=== PATIENT | female | born 1990 | race Caucasian/White ===

== ENCOUNTER 2017-07-14 04:20 | Emergency (ER) | payer BC ==
[2017-07-14] MEDS ORDERED: Ondansetron 4 MG Tab.DIS PO ONE (04:52)
--- NOTE | 2017-07-14 04:56 | EDM.PDOC ---
ED HPI GENERAL MEDICAL PROBLEM - General Chief Complaint: ENT Problem Stated Complaint: BLOOD FROM NOSE/VOMITING Time Seen by Provider: 07/14/17 04:39 Source of Information: Reports: Patient History Limitations: Reports: No Limitations - History of Present Illness INITIAL COMMENTS - FREE TEXT/NARRATIVE: 27 y/o F presents with epistaxis and vomiting. States that she drank several beers this evening then laid down on the couch. Woke up to copious bleeding from her R nare. No known provoking factor. No known trauma. No recent illness. She states bleeding was initially quite brisk. She tried to hold pressure but then became nauseated and had several episodes of vomiting. Came to ED for further eval. Bleeding stopped before arrival. No longer nauseated. No abd pain at this time. She has been getting occasional LUQ pain under her ribcage. No provoking factor, not related to eating. She does not have this pain now. ALso occasionally gets back pain, which she does not have at this time. States she drinks ETOH daily, had 5 beers last evening. - Related Data Allergies Allergy/AdvReac Type Severity Reaction Status Date / Time moxifloxacin [From Vigamox] Allergy Hives Verified 07/14/17 04:35 Home Meds: Home Meds Psyllium Husk/Aspartame [Metamucil Fiber Singles Packet] 1 pack PO DAILY [History] Past Medical History Gastrointestinal History: Reports: GERD Neurological History: Reports: Migraines Psychiatric History: Reports: Anxiety Dermatologic History: Reports: Other (See Below) Other Dermatologic History: lump in armpit - Past Surgical History HEENT Surgical History: Reports: LASIK GI Surgical History: Reports: EGD Social & Family History - Caffeine Use Caffeine Use: Reports: None - Recreational Drug Use Recreational Drug Use: No ED ROS ENT - Review of Systems Review Of Systems: Unable To Obtain Constitutional: Denies: Fever HEENT: Reports: Nosebleed Respiratory: Denies: Cough Cardiovascular: Denies: Chest Pain Endocrine: Reports: No Symptoms GI/Abdominal: Reports: Vomiting : Reports: No Symptoms Musculoskeletal: Reports: No Symptoms Skin: Reports: No Symptoms Neurological: Reports: No Symptoms Psychiatric: Reports: No Symptoms Hematologic/Lymphatic: Denies: Easy Bleeding ED EXAM, ENT - Physical Exam Exam: See Below Exam Limited By: No Limitations General Appearance: Alert, WD/WN, No Apparent Distress, Other (smells strongly of ETOH ) Eye Exam: Bilateral Eye: Normal Inspection Ears: Normal External Exam Nose: Normal Inspection, Normal Mucousa, Dried Blood (on L septum suggestive of recent bleeding. No active bleeding. ). No: Injected Turbinates Mouth/Throat: Normal Inspection, Normal Oropharynx. No: Bleeding Head: Atraumatic, Normocephalic Neck: Normal Inspection, Supple Respiratory/Chest: No Respiratory Distress, Lungs Clear, Normal Breath Sounds Cardiovascular: Normal Peripheral Pulses, Regular Rate, Rhythm, No Murmur GI/Abdominal: Soft, Non-Tender, No Distention. No: Rebound Back: Normal Inspection. No: CVA Tenderness (L), CVA Tenderness (R) Extremities: Normal Inspection Neurological: Alert, Oriented, Normal Cognition, No Motor/Sensory Deficits Psychiatric: Normal Affect, Normal Mood Skin: Warm, Dry, Intact, Normal Color, No Rash Course - Vital Signs Last Recorded V/S: Last Vital Signs Temp 37.1 C 07/14/17 04:30 Pulse 110 H 07/14/17 04:30 Resp 18 07/14/17 04:30 BP 148/92 H 07/14/17 04:30 Pulse Ox 100 07/14/17 04:30 - Orders/Labs/Meds Meds: Medications Discontinued Medications Generic Name Dose Route Start Last Admin Trade Name Shalonda PRN Reason Stop Dose Admin Ondansetron HCl 8 mg 07/14/17 04:52 07/14/17 05:00 Zofran Odt PO 07/14/17 04:53 8 mg ONETIME ONE Administration - Re-Assessments/Exams Free Text/Narrative Re-Assessment/Exam: 07/14/17 06:51 No active epistaxis here. She was more concerned about the vomiting, which has ceased. It may have been due to the swallowed blood. No further nausea. No abd pain or TTP now. I suggested she f/u with PCP for her intermittent LUQ pain. Departure - Departure Time of Disposition: 04:52 Disposition: Home, Self-Care 01 Clinical Impression: Epistaxis Vomiting Qualifiers: Vomiting type: unspecified Vomiting Intractability: non-intractable Nausea presence: with nausea Qualified Code(s): R11.2 - Nausea with vomiting, unspecified - Discharge Information Instructions: Vomiting, Adult, Nosebleed, Adult Referrals: Zhen Seymour MD [Primary Care Provider] - Forms: ED Department Discharge Additional Instructions: 1. Drink plenty of fluids 2. Use vaseline as needed on the inner nose surface to prevent further bleeds. 3. Follow up with Dr. Bocanegra as needed for your other concerns. Return to the Emergency Department for any further emergency problems, such as severe pain , difficulty breathing, many episodes of vomiting without keeping liquids down or other severe symptoms.
== END 2017-07-14 05:05 | disposition home or self-care (01) ==
LOC: JD.ED 04:20
DX: R04.0 Epistaxis (principal); R11.2 Nausea with vomiting, unspecified; K21.9 Gastro-esophageal reflux disease without esophagitis; Z79.899 Other long term (current) drug therapy; Z88.1 Allergy status to other antibiotic agents
CPT/HCPCS: 99283; A9270

== ENCOUNTER 2018-12-23 19:26 | Emergency (ER) | payer SELFPAY ==
--- NOTE | 2018-12-23 19:46 | EDM.PDOC ---
ED HPI GENERAL MEDICAL PROBLEM - General Chief Complaint: Bite:Animal, Insect Stated Complaint: DOG BITE Time Seen by Provider: 12/23/18 19:46 Right Arm Pain Score (Numeric/FACES): 4 - Related Data Allergies Allergy/AdvReac Type Severity Reaction Status Date / Time moxifloxacin [From Vigamox] Allergy Hives Verified 12/23/18 19:43 Home Meds: Home Meds Psyllium Husk/Aspartame [Metamucil Fiber Singles Packet] 1 pack PO DAILY [History] Acetaminophen/HYDROcodone [[place] 325-5 MG] 1 tab PO Q4H PRN #10 tablet 12/23/18 [Rx] Omeprazole 20 mg PO DAILY 12/23/18 [History] Sucralfate 1 gm PO DAILY 12/23/18 [History] Past Medical History Gastrointestinal History: Reports: GERD Neurological History: Reports: Migraines Psychiatric History: Reports: Anxiety Dermatologic History: Reports: Other (See Below) Other Dermatologic History: lump in armpit - Past Surgical History HEENT Surgical History: Reports: LASIK GI Surgical History: Reports: EGD Social & Family History - Caffeine Use Caffeine Use: Reports: None ED ROS GENERAL - Review of Systems Review Of Systems: See Below Constitutional: Reports: No Symptoms Respiratory: Reports: No Symptoms Cardiovascular: Reports: No Symptoms GI/Abdominal: Reports: No Symptoms ED EXAM, ANIMAL BITE - Physical Exam Exam: See Below Exam Limited By: No Limitations General Appearance: Alert, No Apparent Distress Respiratory/Chest: No Respiratory Distress, Lungs Clear, Normal Breath Sounds Cardiovascular: Normal Peripheral Pulses, Regular Rate, Rhythm, No Edema Extremities: Other (Average right forearm shows a large horizontal chevron- shaped laceration on the flexor surface of her forearm. She has a couple puncture wounds on her fingers she has good range of motion of her fingers or vascular status is intact.) ED ANIMAL BITE PROCEDURES - Laceration/Wound Repair Right Arm Lac/Wound Length In cm: 10.5 Appearance: Subcutaneous Distal NVT: Neuro & Vascular Intact Anesthetic Type: Local Local Anesthesia - Lidocaine (Xylocaine): 1% Plain Local Anesthetic Volume: Other (16 mL 1% lidocaine without epinephrine) Skin Prep: Chlorhexidine (Hibiciens), Saline Exploration/Debridement/Repair: Wound Explored, In a Bloodless Field, Explored to Base, Minimal Debridement Suture Size: 3-0 # of Sutures: 13 Suture Type: Nylon Tetanus Status Addressed: Other (This is up to date) Complications: No Progress/Comments: Patient has a large chevron-shaped laceration voiding radial aspect of the arm on the flexor surface. The medial pointed flap was brought together using a horizontal mattress stitch just to approximated the wings were then sutured together yielding pretty good wound approximation being careful to keep the skin loosely approximated with a mattress stitch was then removed to simple sutures were used to place the apex in good position. Course - Vital Signs Last Recorded V/S: Last Vital Signs Temp 36.7 C 12/23/18 19:39 Pulse 90 12/23/18 19:39 Resp 18 12/23/18 19:39 BP 157/106 H 12/23/18 19:39 Pulse Ox 97 12/23/18 19:39 - Orders/Labs/Meds Meds: Medications Discontinued Medications Generic Name Dose Route Start Last Admin Trade Name Freq PRN Reason Stop Dose Admin Amoxicillin/Clavulanate Potassium 1 tab 12/23/18 19:53 12/23/18 20:12 Augmentin 875 Mg/125 Mg PO 12/23/18 19:54 1 tab ONETIME ONE Administration Lidocaine HCl 10 ml 12/23/18 19:56 12/23/18 20:12 Xylocaine 1% INJECT 12/23/18 19:57 10 ml ONETIME ONE Administration Lidocaine HCl 10 ml 12/23/18 20:07 12/23/18 20:12 Xylocaine 1% INJECT 12/23/18 20:08 10 ml ONETIME ONE Administration - Re-Assessments/Exams Free Text/Narrative Re-Assessment/Exam: 12/23/18 21:19 Patient was started on Augmentin confirmed her tetanus status was up-to-date and primary repair of this was done explained to the patient no uncertain terms that were loosely approximate this because it is higher risk for infection. The patient will take Augmentin for 10 days Departure - Departure Time of Disposition: 21:20 Disposition: Home, Self-Care 01 Clinical Impression: Open wound of right forearm due to dog bite, Laceration of right forearm - Discharge Information Prescriptions: Acetaminophen/HYDROcodone [[place] 325-5 MG] 1 tab PO Q4H PRN #10 tablet PRN Reason: Pain Referrals: Lion,Zhen M, MD [Primary Care Provider] - Forms: ED Department Discharge Additional Instructions: Return to the emergency room with any questions problems or worsening symptoms. Sutures out in 10-12 days. Use ibuprofen or Tylenol as needed for discomfort if that doesn't work use the hydrocodone Take the Augmentin every 12 hours until all gone. Keep the wound clean and dry for the next 24 hours after this she can let water gently roll over the area for only a few seconds no scrubbing and then gently dab dry
[2018-12-23] MEDS ORDERED: Amoxicillin/Clavulanate K 875-125 MG Tab PO ONE (19:53)
[2018-12-23] MEDS ORDERED: Lidocaine 1% 10 ML MDV INJECT ONE ×2 (19:56→20:07)
== END 2018-12-23 21:43 | disposition home or self-care (01) ==
LOC: JD.ED 19:26
DX: S51.851A Open bite of right forearm, initial encounter (principal); K21.9 Gastro-esophageal reflux disease without esophagitis; Z88.1 Allergy status to other antibiotic agents; Z79.899 Other long term (current) drug therapy; W54.0XXA Bitten by dog, initial encounter
CPT/HCPCS: 12004; 99283; A9270; J2001

== ENCOUNTER 2019-01-05 16:38 | Emergency (ER) | payer SELFPAY | END 2019-01-05 17:25 | disposition home or self-care (01) | LOC: JD.ED 16:38 | DX: Z48.02 Encounter for removal of sutures (principal) | CPT/HCPCS: 99281 ==

== ENCOUNTER 2019-06-10 22:44 | Emergency (ER) | payer SELFPAY ==
--- NOTE | 2019-06-10 23:42 | EDM.PDOC ---
ED HPI GENERAL MEDICAL PROBLEM - General Chief Complaint: Abdominal Pain Stated Complaint: RIGHT SIDE PAIN Time Seen by Provider: 06/10/19 23:14 Source of Information: Reports: Patient History Limitations: Reports: No Limitations - History of Present Illness INITIAL COMMENTS - FREE TEXT/NARRATIVE: Is a 29-year-old female. The afternoon she was having some right lower quadrant sharp intermittent pain. Around 2 hours ago it seemed to get worse. She comes to the ER for evaluation. She says occasionally the sharp pain will radiate into her lower back area as well. She denies any urinary symptoms she denies being . She did get some nausea with a sharp pain but no vomiting and she has no diarrhea. She has no history of kidney stones. She still has her appendix and there might be a vague history of having ovarian cysts. Denies any fever or chills. She any cough or shortness of breath. Has had a LEEP procedure in the past but never followed up after it was done. 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 (HPV) - Past Surgical History HEENT Surgical History: Reports: LASIK, Oral Surgery Other HEENT Surgeries/Procedures: tooth extraction GI Surgical History: Reports: EGD Female Surgical History: Reports: LEEP Social & Family History - Tobacco Use Smoking Status *Q: Never Smoker - Caffeine Use Caffeine Use: Reports: None Other Caffeine Use: rarely - Alcohol Use Days Per Week of Alcohol Use: 7 Number of Drinks Per Day: 6 Total Drinks Per Week: 42 - Recreational Drug Use Recreational Drug Use: No ED ROS GENERAL - Review of Systems Review Of Systems: See Below Constitutional: Denies: Fever, Chills HEENT: Reports: No Symptoms Respiratory: Denies: Shortness of Breath, Cough Cardiovascular: Reports: No Symptoms Endocrine: Reports: No Symptoms GI/Abdominal: Reports: Abdominal Pain, Nausea. Denies: Constipation, Diarrhea, Vomiting : Reports: No Symptoms Musculoskeletal: Reports: Back Pain Skin: Reports: No Symptoms Neurological: Reports: No Symptoms Psychiatric: Reports: No Symptoms Hematologic/Lymphatic: Reports: No Symptoms ED EXAM, GI/ABD - Physical Exam Exam: See Below Exam Limited By: No Limitations General Appearance: Alert, WD/WN, No Apparent Distress Eyes: Bilateral: Normal Appearance Ears: Normal External Exam Nose: Normal Inspection Throat/Mouth: Normal Voice, No Airway Compromise Head: Normocephalic Neck: Supple Respiratory/Chest: No Respiratory Distress, Lungs Clear, Normal Breath Sounds Cardiovascular: Regular Rate, Rhythm, No Murmur GI/Abdominal Exam: Soft, Other (Tender deep in the right lower quadrant area on palpation but there is no masses, there is no peritoneal irritation or rebound noted. She has negative CVAT on the right side.) Back Exam: Normal Inspection, Full Range of Motion. No: CVA Tenderness (R) Extremities: Normal Inspection, Normal Range of Motion Neurological: Alert, Oriented Psychiatric: Normal Affect, Normal Mood Skin Exam: Warm, Dry Course - Vital Signs Last Recorded V/S: Last Vital Signs Temp 97.2 F 06/10/19 22:58 Pulse 92 06/10/19 22:58 Resp 19 06/10/19 22:58 BP 144/94 H 06/10/19 22:58 Pulse Ox 100 06/10/19 22:58 - Orders/Labs/Meds Orders: Active Orders 24 hr Category Date Time Status Transvaginal Non OB [US] Stat Exams 06/11/19 00:25 Taken Labs: Laboratory Tests 06/10/19 06/10/19 06/10/19 Range/Units 23:34 23:34 23:50 WBC 6.28 (3.98-10.04) K/mm3 RBC 4.07 (3.98-5.22) M/mm3 Hgb 13.0 (11.2-15.7) gm/dl Hct 38.9 (34.1-44.9) % MCV 95.6 H (79.4-94.8) fl MCH 31.9 (25.6-32.2) pg MCHC 33.4 (32.2-35.5) g/dl RDW Std Deviation 44.0 (36.4-46.3) fL Plt Count 236 (182-369) K/mm3 MPV 9.7 (9.4-12.3) fl Neut % (Auto) 47.4 (34.0-71.1) % Lymph % (Auto) 39.3 (19.3-51.7) % [place]ett % (Auto) 10.0 (4.7-12.5) % Eos % (Auto) 1.3 (0.7-5.8) Baso % (Auto) 1.8 H (0.1-1.2) % Neut # (Auto) 2.98 (1.56-6.13) K/mm3 Lymph # (Auto) 2.47 (1.18-3.74) K/mm3 Burnett # (Auto) 0.63 H (0.24-0.36) K/mm3 Eos # (Auto) 0.08 (0.04-0.36) K/mm3 Baso # (Auto) 0.11 H (0.01-0.08) K/mm3 HCG, Qual Negative (NEGATIVE) Urine Color Yellow (Yellow) Urine Appearance Clear (Clear) Urine pH 6.5 (5.0-8.0) Ur Specific [place] 1.015 (1.005-1.030) Urine Protein Negative (Negative) Urine Glucose (UA) Negative (Negative) Urine Ketones Negative (Negative) Urine Occult Blood Negative (Negative) Urine Nitrite Negative (Negative) Urine Bilirubin Negative (Negative) Urine Urobilinogen 0.2 (0.2-1.0) Ur Leukocyte Esterase Negative (Negative) Urine RBC 0-5 (0-5) /hpf Urine WBC Not seen (0-5) /hpf Ur Squamous Epith Cells 0-5 (0-5) /hpf Urine Bacteria Not seen (FEW) /hpf Urine Mucus Not seen (FEW) /hpf - Radiology Interpretation Free Text/Narrative:: Ultrasound did not show any evidence of ovarian torsion. She has a complex cyst on the left ovary most likely a hemorrhagic cyst. They did not see any other acute abnormality. - Re-Assessments/Exams Free Text/Narrative Re-Assessment/Exam: 06/11/19 01:51 Poke to the patient regarding the ultrasound results. The right lower quadrant pain is feeling better. She wants to go home. Was noted to have a hemorrhagic cyst on the left ovary and the right ovary appeared to be normal. Departure - Departure Time of Disposition: 01:52 Disposition: Home, Self-Care 01 Condition: Good Clinical Impression: Right lower quadrant pain Ovarian cyst Qualifiers: Laterality: left Qualified Code(s): N83.202 - Unspecified ovarian cyst, left side - Discharge Information Instructions: Abdominal Pain, Adult, [id number] Referrals: Zhen Seymour MD [Primary Care Provider] - Forms: ED Department Discharge Additional Instructions: Gentle activity over the next 24 hours, rest and sleep over the weekend is much as possible, if this pain for some reason gets worse than you may need to return to the ER for reevaluation, follow-up with your doctor later this week if needed. Sepsis Event Note - Evaluation Sepsis Screening Result: No Definite Risk - Focused Exam Vital Signs: Vital Signs Temp Pulse Resp BP Pulse Ox 06/10/19 22:58 97.2 F 92 19 144/94 H 100 Date Exam was Performed: 06/11/19 Time Exam was Performed: 01:51 - My Orders Last 24 Hours: My Active Orders 06/11/19 00:25 Transvaginal Non OB [US] Stat - Assessment/Plan Last 24 Hours: My Active Orders 06/11/19 00:25 Transvaginal Non OB [US] Stat
--- NOTE | 2019-06-12 10:49 | US ---
Pelvic ultrasound: Multiple real-time images were obtained transvaginally. Comparison: No prior pelvic imaging is available. Findings: Uterus is anteverted. No myometrial abnormality is seen. Endometrial thickness is normal at 4.5 mm. Small nabothian cyst is noted. Follicles are seen within the ovaries. Small complicated cyst noted within the left ovary measuring 2.6 cm believed to be physiologic. No free fluid is seen. Measurements: Uterus: Length 6.5 cm, AP height 2.8 cm, transverse width 3.5 cm Right ovary: 3.2 x 1.7 x 2.3 cm Left ovary: 4.2 x 3.1 x 3.5 cm Impression: 1. Small nabothian cyst. 2. Small complicated cyst within the right ovary believed to be physiologic. Diagnostic code #2 I agree with preliminary report issued by [facility] ([facility] preliminary report dictated on 06/11/19 Central Daylight Time) Study was dictated in MDT
== END 2019-06-11 02:09 | disposition home or self-care (01) ==
LOC: JD.ED 22:44
DX: N83.202 Unspecified ovarian cyst, left side (principal); N83.201 Unspecified ovarian cyst, right side; Z88.8 Allergy status to other drugs, medicaments and biological substances
CPT/HCPCS: 36415; 76830; 76830-26; 81001; 84703; 85025; 99283; 99284-25

== ENCOUNTER 2021-05-29 07:44 | Emergency (ER) | payer OTHER ==
[2021-05-29] MEDS ORDERED: Lidocaine 1% with EPINEPHrine 1:100,000 10 ML MDV INJECT ONE (08:22)
[2021-05-29] MEDS ORDERED: Bupivacaine 0.5% 10 ML SDV INJECT ONE (08:22)
== END 2021-05-29 09:35 | disposition home or self-care (01) ==
LOC: JD.ED 07:44
DX: S02.5XXA Fracture of tooth (traumatic), initial encounter for closed fracture (principal); S01.511A Laceration without foreign body of lip, initial encounter; F10.129 Alcohol abuse with intoxication, unspecified; Z72.0 Tobacco use; Z88.1 Allergy status to other antibiotic agents; W18.09XA Striking against other object with subsequent fall, initial encounter
CPT/HCPCS: 12013; 99283; J3490; 99284

== ENCOUNTER 2021-06-04 12:47 | Emergency (ER) | payer OTHER ==
[2021-06-04] MEDS ORDERED: cefTRIAXone 1 GM, Lidocaine 1% 2.1 ML IM ONE ×2 (13:19)
== END 2021-06-04 13:38 | disposition home or self-care (01) ==
LOC: JD.ED 12:47
DX: T81.49XA Infection following a procedure, other surgical site, initial encounter (principal); K21.9 Gastro-esophageal reflux disease without esophagitis; Z72.0 Tobacco use; Z88.8 Allergy status to other drugs, medicaments and biological substances
CPT/HCPCS: 96372; 99282; J0696

== ENCOUNTER 2021-08-27 18:57 | Emergency (ER) | payer OTHER ==
[2021-08-27] MEDS ORDERED: Acetaminophen 325 MG Tab PO ONE (20:10)
== END 2021-08-27 22:45 | disposition home or self-care (01) ==
LOC: JD.ED 18:57
DX: S01.01XA Laceration without foreign body of scalp, initial encounter (principal); R56.9 Unspecified convulsions; F17.210 Nicotine dependence, cigarettes, uncomplicated; Z28.310 Unvaccinated for COVID-19; W18.09XA Striking against other object with subsequent fall, initial encounter
CPT/HCPCS: 12001; 36415; 70450; 80053; 80306; 80307; 81025; 83735; 84100; 85025; 99285; A9270; 99284

== ENCOUNTER 2021-08-28 01:48 | Inpatient (IN) | payer OTHER ==
[2021-08-28] MEDS ORDERED: LORazepam 1 MG Tab PO ONE (02:13)
[2021-08-28] MEDS ORDERED: Sodium Chloride 0.9% 10 ML Syringe FLUSH PRN (04:57)
[2021-08-28] MEDS ORDERED: Magnesium Sulfate (4.06 MEQ/ML) 5 GM/10 ML SDV IV STA (07:50)
[2021-08-28] MEDS ORDERED: Sodium Chloride 0.45% with KCl 1,000 ML IV SCH (08:00)
[2021-08-28] MEDS ORDERED: Magnesium Sulfate/Water 2 GM in Premix Bag 1 BAG IV ONE (08:15)
[2021-08-28] MEDS ORDERED: Ondansetron 4 MG/2 ML SDV IV PRN (08:40)
[2021-08-28] MEDS ORDERED: LORazepam 2 MG/ML SDV IVPUSH PRN (08:40)
[2021-08-28] MEDS: LORazepam 2 MG/ML SDV IVPUSH PRN ×2 (09:16→12:58)
[2021-08-28] MEDS: Famotidine 20 MG Tab PO SCH ×2 (09:19→22:00)
[2021-08-28] MEDS: Thiamine 100 MG Tab PO SCH (09:19)
[2021-08-28] MEDS: Folic Acid 1 MG Tab PO SCH (09:19)
[2021-08-28] MEDS: Potassium Chloride 10 MEQ in Premix Bag 1 BAG IV SCH ×4 (09:20→14:52)
[2021-08-28] MEDS: Nicotine 14 MG/24 Hr Patch TRDERM SCH ×2 (09:28→23:53)
[2021-08-28] MEDS ORDERED: Gadobenate Dimeglumine 529 MG/ML 15 ML SDV IVPUSH ONE (11:08)
[2021-08-28] MEDS ORDERED: Sodium Chloride 0.9% 10 ML Syringe FLUSH ONE (11:30)
[2021-08-28] MEDS: Acetaminophen 325 MG Tab PO PRN ×2 (12:24→22:11)
[2021-08-28] MEDS: Benzocaine 20% Topical Spray UD MUCMEM PRN ×3 (12:55→22:12)
[2021-08-28] MEDS ORDERED: Potassium Chloride 20 MEQ Tab.ER PO ONE (13:15)
[2021-08-28] MEDS: Topiramate 25 MG Tab PO SCH ×2 (14:11→22:00)
[2021-08-29] MEDS: Nicotine 14 MG/24 Hr Patch TRDERM SCH (09:01)
[2021-08-29] MEDS: Famotidine 20 MG Tab PO SCH ×2 (09:02→20:06)
[2021-08-29] MEDS: Topiramate 25 MG Tab PO SCH ×3 (09:03→20:06)
[2021-08-29] MEDS: Folic Acid 1 MG Tab PO SCH (09:03)
[2021-08-29] MEDS: Acetaminophen 325 MG Tab PO PRN ×3 (09:04→21:23)
[2021-08-29] MEDS: Thiamine 100 MG Tab PO SCH (09:04)
[2021-08-29] MEDS: Diphenhydramine/Lidocaine/MagAl/Simethicone 119 ML Bottle PO PRN (18:12)
[2021-08-29] MEDS ORDERED: Triamcinolone Acetonide 0.1% Dental Paste 5 GM Tube DENT SCH (21:00)
[2021-08-30] MEDS: Nicotine 14 MG/24 Hr Patch TRDERM SCH (08:27)
[2021-08-30] MEDS: Diphenhydramine/Lidocaine/MagAl/Simethicone 119 ML Bottle PO PRN (08:27)
[2021-08-30] MEDS: Thiamine 100 MG Tab PO SCH (09:11)
[2021-08-30] MEDS: Folic Acid 1 MG Tab PO SCH (09:12)
[2021-08-30] MEDS: Topiramate 25 MG Tab PO SCH (09:12)
[2021-08-30] MEDS: Famotidine 20 MG Tab PO SCH (09:12)
[2021-08-30] MEDS: Acetaminophen 325 MG Tab PO PRN (09:35)
== END 2021-08-30 11:25 | disposition home or self-care (01) | DRG 897 ==
LOC: JD.ED 01:48 → JD.MS 02:52 → JD.ICU 03:22
PROVIDERS: ADMIT Internal Medicine Cardiovascular Disease; ATTEND Internal Medicine Cardiovascular Disease
DX: F10.239 Alcohol dependence with withdrawal, unspecified (principal); F10.229 Alcohol dependence with intoxication, unspecified; F41.9 Anxiety disorder, unspecified; F32.A Depression, unspecified; R56.9 Unspecified convulsions; K14.6 Glossodynia; F17.210 Nicotine dependence, cigarettes, uncomplicated; K21.9 Gastro-esophageal reflux disease without esophagitis; S01.01XS Laceration without foreign body of scalp, sequela
CPT/HCPCS: 36415; 70553; 70553-26; 80048; 80053; 80306; 81025; 83735; 85025; 95816; 95824; 99222; 99233; 99239; 99283; 99285-25; A9270-GY; A9577; J2060; J3475; J3480; J3490

== ENCOUNTER 2021-10-19 06:13 | Emergency (ER) | payer BC ==
[2021-10-19] MEDS ORDERED: Metoclopramide 10 MG/2 ML SDV IVPUSH ONE (07:00)
[2021-10-19] MEDS ORDERED: Dextrose 5%-Lactated Ringers 1,000 ML IV SCH (07:00)
[2021-10-19] MEDS ORDERED: HYDROmorphone 0.5 MG/0.5 ML Syringe IVPUSH ONE (07:01)
[2021-10-19 07:46] LABS: ESTIMATED GFR 122 mL/min (>60)
== END 2021-10-19 11:55 | disposition home or self-care (01) ==
LOC: EDBD 06:13 → JD.ED 06:13 → MERGE 06:13 → JD.ED 11:55
DX: K52.9 Noninfective gastroenteritis and colitis, unspecified (principal); Z88.1 Allergy status to other antibiotic agents
CPT/HCPCS: 36415; 80053; 83735; 85025; 86140; 96361; 96374; 96375; 99284; J1170; J2765; J7121

== ENCOUNTER 2022-08-29 14:34 | Inpatient (IN) | payer MEDICAID ==
[2022-08-29] MEDS ORDERED: Sodium Chloride 0.9% 10 ML Syringe FLUSH PRN (19:46)
[2022-08-29] MEDS ORDERED: Misoprostol 100 MCG Tab VAG ONE (19:46)
[2022-08-29] MEDS ORDERED: Nalbuphine 10 MG/0.5 ML Syringe IVPUSH PRN (19:49)
[2022-08-29] MEDS ORDERED: Oxytocin/Lactated Ringers 10 UNIT/1,000 ML BAG IV SCH (20:00)
[2022-08-29 20:07] LABS: HEMATOCRIT 35.9 % (34.1-44.9); MEAN CORPUSCULAR HEMOGLOBIN 30.8 pg (25.6-32.2); MEAN CORPUSCULAR HGB CONC 33.4 g/dl (32.2-35.5); MEAN CORPUSCULAR VOLUME 92.1 fl (79.4-94.8); MEAN PLATELET VOLUME 10.8 fl (9.4-12.3); PLATELET COUNT,PLT 291 K/mm3 (182-369); WHITE BLOOD CELL COUNT,WBC 13.37 K/mm3 (3.98-10.04)
[2022-08-30] MEDS: Misoprostol 25 MCG (1/4 of 100 MCG) Tab VAG SCH ×3 (00:38→09:09)
[2022-08-30] MEDS: Sodium Chloride 0.9% 10 ML Syringe FLUSH SCH ×2 (03:19→09:09)
[2022-08-30] MEDS: Lactated Ringers 1,000 ML IV SCH ×2 (09:24→10:55)
[2022-08-30] MEDS ORDERED: diphenhydrAMINE 50 MG/ML SDV IVPUSH PRN (10:43)
[2022-08-30] MEDS ORDERED: Bupivacaine/fentaNYL/NS 100 ML Bag EPIDUR PRN (10:43)
[2022-08-30] MEDS ORDERED: fentaNYL 100 MCG/2 ML SDV EPIDUR PRN (10:43)
[2022-08-30] MEDS ORDERED: ePHEDrine 50 MG/ML SDV IVPUSH PRN (10:43)
[2022-08-30] MEDS ORDERED: Bupivacaine 0.25% 10 ML SDV ONE (13:00)
[2022-08-30] MEDS ORDERED: Lidocaine 1% 10 ML MDV ONE (13:00)
[2022-08-30] MEDS ORDERED: ceFAZolin 2 GM in Sodium Chloride 0.9% 50 ML IV ONE (14:51)
[2022-08-30] MEDS ORDERED: Benzocaine/Menthol 20%-0.5% Spray 78 GM Cannister TOP PRN (17:05)
[2022-08-30] MEDS ORDERED: Witch Hazel Medicated Pads 40/Jar TOP PRN (17:05)
[2022-08-30] MEDS ORDERED: Docusate Sodium 100 MG Cap PO PRN (17:05)
[2022-08-30] MEDS: Ibuprofen 600 MG Tab PO PRN (17:45)
[2022-08-31] MEDS: Ibuprofen 600 MG Tab PO PRN ×3 (00:30→16:30)
[2022-08-31] MEDS: Acetaminophen 325 MG Tab PO PRN (12:07)
[2022-09-01] MEDS: Ibuprofen 600 MG Tab PO PRN ×2 (00:17→08:01)
[2022-09-01] MEDS: Acetaminophen 325 MG Tab PO PRN ×2 (00:18→08:00)
[2022-09-01] MEDS ORDERED: Measles, Mumps & Rubella Vaccine 0.5 ML SDV SUBCUT ONE (10:30)
== END 2022-09-01 11:28 | disposition home or self-care (01) | DRG 807 ==
LOC: JD.OB 14:34 → OBSVTOIN 08-30 14:34 → JD.OB 08-30 14:35
PROVIDERS: ADMIT Obstetrics & Gynecology; ATTEND Obstetrics & Gynecology
PROC: 10E0XZZ Delivery of Products of Conception, External Approach (ICD-10-PCS; principal; 2022-08-30)
PROC: 10D17Z9 Manual Extraction of Products of Conception, Retained, Via Natural or Artificial Opening (ICD-10-PCS; principal; 2022-08-30)
PROC: 0HQ9XZZ Repair Perineum Skin, External Approach (ICD-10-PCS; 2022-08-30)
PROC: 3E0R3BZ Introduction of Anesthetic Agent into Spinal Canal, Percutaneous Approach (ICD-10-PCS; 2022-08-30)
PROC: 00HU33Z Insertion of Infusion Device into Spinal Canal, Percutaneous Approach (ICD-10-PCS; 2022-08-30)
PROC: 3E0P7VZ Introduction of Hormone into Female Reproductive, Via Natural or Artificial Opening (ICD-10-PCS; 2022-08-30)
DX: O48.0 Post-term pregnancy (principal); Z37.0 Single live birth; O42.02 Full-term premature rupture of membranes, onset of labor within 24 hours of rupture; O99.334 Smoking (tobacco) complicating childbirth; F17.200 Nicotine dependence, unspecified, uncomplicated; O70.0 First degree perineal laceration during delivery; O73.0 Retained placenta without hemorrhage; Z79.899 Other long term (current) drug therapy; Z28.39 Other underimmunization status; Z3A.40 40 weeks gestation of pregnancy; Z88.8 Allergy status to other drugs, medicaments and biological substances
CPT/HCPCS: 36415; 51701; 59025; 59409; 85027; 86592; 86850; 86900; 86901; A9270-GY; J0690; J2590; J3010; J3490; J7120

== ENCOUNTER 2024-01-09 07:13 | Inpatient (IN) | payer MEDICAID, OTHER ==
[2024-01-09] MEDS: Sodium Chloride 0.9% 10 ML Syringe FLUSH PRN (08:23)
[2024-01-09] MEDS: Lactated Ringers 1,000 ML IV ONE ×2 (08:23→10:19)
[2024-01-09] MEDS: Ondansetron 4 MG/2 ML SDV IVPUSH ONE ×3 (08:23→12:04)
[2024-01-09 08:33] LABS: BASOPHILS PERCENT AUTO 0.1 % (0.0-1.0); EOSINOPHILS PERCENT AUTO 0.2 % (0.0-6.0); HEMATOCRIT 34.3 % (37.0-47.0); HEMOGLOBIN 12.3 gm/dl (12.0-16.0); IMMATURE GRAN ABSOLUTE AUTO 0.03 K/mm3 (0.00-0.05); IMMATURE GRAN PERCENT AUTO 0.3 % (0.0-0.4); LYMPHOCYTES ABSOLUTE AUTO 0.3 K/mm3 (1.0-4.8); LYMPHOCYTES PERCENT AUTO 3.6 % (24.0-44.0); MEAN CORPUSCULAR HGB CONC 35.9 g/dl (32.0-36.0); MEAN CORPUSCULAR VOLUME 89.3 fl (83.0-99.0); MEAN PLATELET VOLUME 11.8 fl (9.4-12.3); MONOCYTES ABSOLUTE AUTO 0.2 K/mm3 (0.0-0.8); MONOCYTES PERCENT AUTO 1.9 % (0.0-8.0); NEUTROPHILS ABSOLUTE AUTO 8.3 K/mm3 (1.8-7.7); NEUTROPHILS PERCENT AUTO 93.9 % (41.0-71.0); NRBC ABSOLUTE 0.02 (0.00-0.02); NRBC PERCENT 0.2 % (0.0-0.2); PLATELET COUNT,PLT 104 K/mm3 (150-400); RED BLOOD CELL COUNT 3.84 M/mm3 (4.10-5.30); WHITE BLOOD CELL COUNT,WBC 8.81 K/mm3 (3.9-11.3)
[2024-01-09 08:34] LABS: CORONAVIRUS COVID-19 NAA NEGATIVE (NEGATIVE); INFLUENZA A NAA NEGATIVE (NEGATIVE); RESPIRATORY SYNCYTIAL VIR NAA NEGATIVE (NEGATIVE)
[2024-01-09 08:49] LABS: A/G RATIO 0.5 (1-2); ALBUMIN 2.5 g/dl (3.4-5.0); ANION GAP 18.2 (5-15); BILIRUBIN TOTAL 0.4 mg/dL (0.2-1.0); BUN/CREATININE RATIO 9.8 (14-18); CALCIUM 8.4 mg/dL (8.5-10.1); EST CRCL DRUG DOSING (CG) 17.67 mL/min; POTASSIUM,K 3.2 mEq/L (3.5-5.1); PROTEIN TOTAL,TP 7.6 g/dl (6.4-8.2)
[2024-01-09 09:03] LABS: SLIDE REVIEW ABNORMAL SMEAR
[2024-01-09 09:04] LABS: CREATININE 4.2 mg/dL (0.55-1.02)
[2024-01-09] MEDS: Ketorolac 15 MG/ML SDV IVPUSH ONE (09:20)
[2024-01-09 10:17] LABS: APPEARANCE,URINE CLOUDY (Clear); BILIRUBIN,URINE NEGATIVE (Negative); COLOR,URINE YELLOW (Yellow); GLUCOSE,URINE NEGATIVE (Negative); KETONES,URINE NEGATIVE (Negative); LEUKOCYTE ESTERASE,URINE 2+ (Negative); NITRITE,URINE NEGATIVE (Negative); OCCULT BLOOD,URINE 2+ (Negative); PH,URINE 6.5 (5.0-8.0); PROTEIN,URINE 3+ (Negative); UROBILINOGEN,URINE 0.2 (0.2-1.0)
[2024-01-09] MEDS: Morphine 4 MG/ML Syringe IVPUSH ONE (10:19)
[2024-01-09 10:24] LABS: AMORPHOUS SEDIMENT,URINE FEW /hpf (NOT SEEN); BACTERIA,URINE MANY /hpf (FEW); MUCUS,URINE FEW /hpf (FEW); RBC,URINE 20-30 /hpf (0-5); SQUAMOUS EPITHELIAL CELLS,UR 0-5 /hpf (0-5); WBC,URINE >100 /hpf (0-5)
[2024-01-09] MEDS ORDERED: Sennosides/Docusate Sodium 50-8.6 MG Tab PO PRN (12:04)
[2024-01-09] MEDS ORDERED: Melatonin 3 MG Tab PO PRN (12:04)
[2024-01-09] MEDS ORDERED: Ondansetron 4 MG/2 ML SDV IV PRN (12:04)
[2024-01-09] MEDS ORDERED: Ondansetron 4 MG Tab.DIS PO PRN (12:04)
[2024-01-09] MEDS ORDERED: Acetaminophen 325 MG Tab PO PRN (12:04)
[2024-01-09] MEDS ORDERED: Naloxone 0.4 MG/ML SDV IVPUSH PRN (12:04)
[2024-01-09] MEDS: Sodium Chloride 0.9% 1,000 ML IV ONE (12:13)
[2024-01-09] MEDS ORDERED: 50% Dextrose in Water 50 ML Syringe IVPUSH PRN (12:19)
[2024-01-09 12:41] LABS: HEMOGLOBIN A1C 5.3 %
[2024-01-09] MEDS: Potassium Chloride 20 MEQ Tab.ER PO ONE (14:09)
[2024-01-09] MEDS: Heparin Sodium 5,000 Units/ML Vial SUBCUT SCH (14:09)
[2024-01-09] MEDS: cefTRIAXone 2 GM in Sodium Chloride 0.9% 100 ML IV SCH (14:10)
[2024-01-09] MEDS: Morphine 2 MG/ML SYRINGE IVPUSH PRN (14:26)
[2024-01-09] MEDS: Sodium Chloride 0.9% 1,000 ML IV SCH (14:38)
[2024-01-09 16:47] LABS: A/G RATIO 0.5 (1-2); ALBUMIN 1.9 g/dl (3.4-5.0); ANION GAP 17.4 (5-15); BILIRUBIN TOTAL 0.3 mg/dL (0.2-1.0); BUN/CREATININE RATIO 10.2 (14-18); CALCIUM 7.5 mg/dL (8.5-10.1); CREATININE 4.1 mg/dL (0.55-1.02); EST CRCL DRUG DOSING (CG) 17.4 mL/min; PHOSPHORUS 0.8 mg/dL (2.6-4.7); POTASSIUM,K 3.4 mEq/L (3.5-5.1)
[2024-01-09] MEDS: Insulin Lispro 100 Unit/ML 3 ML KwikPen SUBCUT SCH (18:29)
[2024-01-09] MEDS: oxyCODONE 5 MG Tab PO PRN (18:55)
[2024-01-09] MEDS: Famotidine 20 MG/2 ML SDV IVPUSH SCH (21:13)
[2024-01-09] MEDS: Magnesium Sulfate/Water Premix 4 GM in Premix Bag 1 BAG IV ONE (22:21)
[2024-01-10 05:50] LABS: BASOPHILS PERCENT AUTO 0.5 % (0.0-1.0); EOSINOPHILS PERCENT AUTO 0.3 % (0.0-6.0); IMMATURE GRAN ABSOLUTE AUTO 0.06 K/mm3 (0.00-0.05); LYMPHOCYTES ABSOLUTE AUTO 0.6 K/mm3 (1.0-4.8); LYMPHOCYTES PERCENT AUTO 10.3 % (24.0-44.0); MEAN CORPUSCULAR HGB CONC 36.2 g/dl (32.0-36.0); MEAN CORPUSCULAR VOLUME 88.4 fl (83.0-99.0); MEAN PLATELET VOLUME 12.1 fl (9.4-12.3); MONOCYTES ABSOLUTE AUTO 0.5 K/mm3 (0.0-0.8); MONOCYTES PERCENT AUTO 8.4 % (0.0-8.0); NEUTROPHILS ABSOLUTE AUTO 4.6 K/mm3 (1.8-7.7); NEUTROPHILS PERCENT AUTO 79.5 % (41.0-71.0); PLATELET COUNT,PLT 66 K/mm3 (150-400); RED BLOOD CELL COUNT 2.94 M/mm3 (4.10-5.30); WHITE BLOOD CELL COUNT,WBC 5.83 K/mm3 (3.9-11.3)
[2024-01-10 05:51] LABS: HEMOGLOBIN 9.4 gm/dl (12.0-16.0)
[2024-01-10 06:12] LABS: A/G RATIO 0.5 (1-2); ALBUMIN 1.8 g/dl (3.4-5.0); ANION GAP 16.7 (5-15); BILIRUBIN TOTAL 0.4 mg/dL (0.2-1.0); BUN/CREATININE RATIO 10.2 (14-18); CALCIUM 7.1 mg/dL (8.5-10.1); CREATININE 4.6 mg/dL (0.55-1.02); EST CRCL DRUG DOSING (CG) 15.51 mL/min; MAGNESIUM 2.4 mg/dL (1.8-2.4); PHOSPHORUS 0.6 mg/dL (2.6-4.7); POTASSIUM,K 3.7 mEq/L (3.5-5.1); PROTEIN TOTAL,TP 5.7 g/dl (6.4-8.2)
[2024-01-10 06:14] LABS: SLIDE REVIEW ABNORMAL SMEAR
[2024-01-10] MEDS: Sodium Chloride 0.9% 1,000 ML IV SCH (08:24)
[2024-01-10] MEDS: Sodium Chloride 0.9% 1,000 ML IV ONE (09:33)
[2024-01-10] MEDS: HYDROmorphone 0.5 MG/0.5 ML Syringe IVPUSH PRN ×2 (10:05→16:01)
[2024-01-10] MEDS: Potassium Phosphates 30 MMOLE in Sodium Chloride 0.9% 500 ML IV ONE (10:14)
[2024-01-10] MEDS: Lactated Ringers 1,000 ML IV SCH (11:29)
[2024-01-10 14:41] LABS: A/G RATIO 0.5 (1-2); BILIRUBIN TOTAL 0.4 mg/dL (0.2-1.0); BUN/CREATININE RATIO 10.4 (14-18); CALCIUM 7.1 mg/dL (8.5-10.1); CREATININE 4.6 mg/dL (0.55-1.02); EST CRCL DRUG DOSING (CG) 15.51 mL/min
[2024-01-10] MEDS: Piperacillin/Tazobactam 4.5 GM in Sodium Chloride 0.9% 100 ML IV ONE (16:00)
[2024-01-10] MEDS: Calcium Carbonate 500 MG Tab.Chew PO PRN (16:01)
[2024-01-10] MEDS ORDERED: Piperacillin/Tazobactam 4.5 GM in Sodium Chloride 0.9% 100 ML IV SCH (18:30)
[2024-01-10 21:31] LABS: BASOPHILS PERCENT AUTO 0.3 % (0.0-1.0); EOSINOPHILS PERCENT AUTO 0.3 % (0.0-6.0); HEMOGLOBIN 9.4 gm/dl (12.0-16.0); IMMATURE GRAN ABSOLUTE AUTO 0.05 K/mm3 (0.00-0.05); IMMATURE GRAN PERCENT AUTO 0.8 % (0.0-0.4); LYMPHOCYTES ABSOLUTE AUTO 0.8 K/mm3 (1.0-4.8); LYMPHOCYTES PERCENT AUTO 12.6 % (24.0-44.0); MEAN CORPUSCULAR HEMOGLOBIN 32.2 pg (28.0-32.0); MEAN CORPUSCULAR HGB CONC 36.2 g/dl (32.0-36.0); MEAN PLATELET VOLUME 11.8 fl (9.4-12.3); MONOCYTES ABSOLUTE AUTO 0.7 K/mm3 (0.0-0.8); MONOCYTES PERCENT AUTO 11.5 % (0.0-8.0); NEUTROPHILS ABSOLUTE AUTO 4.8 K/mm3 (1.8-7.7); NEUTROPHILS PERCENT AUTO 74.5 % (41.0-71.0); PLATELET COUNT,PLT 76 K/mm3 (150-400); RED BLOOD CELL COUNT 2.92 M/mm3 (4.10-5.30); WHITE BLOOD CELL COUNT,WBC 6.41 K/mm3 (3.9-11.3)
[2024-01-10 21:38] LABS: PROTHROMBIN TIME 9.8 SECONDS (9.7-12.0)
[2024-01-10 21:40] LABS: INR < 0.93
[2024-01-10 21:48] LABS: A/G RATIO 0.5 (1-2); ALBUMIN 1.9 g/dl (3.4-5.0); ANION GAP 18.7 (5-15); BILIRUBIN TOTAL 0.4 mg/dL (0.2-1.0); BUN/CREATININE RATIO 11.1 (14-18); CREATININE 4.6 mg/dL (0.55-1.02); EST CRCL DRUG DOSING (CG) 15.51 mL/min; POTASSIUM,K 3.7 mEq/L (3.5-5.1); PROTEIN TOTAL,TP 5.8 g/dl (6.4-8.2)
[2024-01-10 22:02] LABS: SLIDE REVIEW ABNORMAL SMEAR
[2024-01-10] MEDS: Piperacillin/Tazobactam 4.5 GM in Sodium Chloride 0.9% 100 ML IV SCH (22:03)
[2024-01-11 06:11] LABS: BASOPHILS PERCENT AUTO 0.4 % (0.0-1.0); EOSINOPHILS PERCENT AUTO 0.3 % (0.0-6.0); HEMATOCRIT 27.1 % (37.0-47.0); HEMOGLOBIN 9.5 gm/dl (12.0-16.0); IMMATURE GRAN ABSOLUTE AUTO 0.05 K/mm3 (0.00-0.05); IMMATURE GRAN PERCENT AUTO 0.7 % (0.0-0.4); LYMPHOCYTES ABSOLUTE AUTO 0.9 K/mm3 (1.0-4.8); LYMPHOCYTES PERCENT AUTO 12.3 % (24.0-44.0); MEAN CORPUSCULAR HEMOGLOBIN 31.5 pg (28.0-32.0); MEAN CORPUSCULAR HGB CONC 35.1 g/dl (32.0-36.0); MEAN CORPUSCULAR VOLUME 89.7 fl (83.0-99.0); MEAN PLATELET VOLUME 11.9 fl (9.4-12.3); MONOCYTES ABSOLUTE AUTO 0.9 K/mm3 (0.0-0.8); MONOCYTES PERCENT AUTO 12.3 % (0.0-8.0); NEUTROPHILS ABSOLUTE AUTO 5.6 K/mm3 (1.8-7.7); PLATELET COUNT,PLT 81 K/mm3 (150-400); RED BLOOD CELL COUNT 3.02 M/mm3 (4.10-5.30); WHITE BLOOD CELL COUNT,WBC 7.55 K/mm3 (3.9-11.3)
[2024-01-11 06:21] LABS: A/G RATIO 0.5 (1-2); ALBUMIN 1.9 g/dl (3.4-5.0); ANION GAP 18.6 (5-15); BILIRUBIN TOTAL 0.4 mg/dL (0.2-1.0); BUN/CREATININE RATIO 11.6 (14-18); C-REACTIVE PROTEIN 16.4 mg/dL (<0.30); CALCIUM 6.7 mg/dL (8.5-10.1); CREATININE 4.3 mg/dL (0.55-1.02); EST CRCL DRUG DOSING (CG) 16.59 mL/min; MAGNESIUM 1.9 mg/dL (1.8-2.4); PHOSPHORUS 2.6 mg/dL (2.6-4.7); POTASSIUM,K 3.6 mEq/L (3.5-5.1); PROTEIN TOTAL,TP 5.8 g/dl (6.4-8.2)
[2024-01-11] MEDS ORDERED: Lactated Ringers 1,000 ML IV SCH (12:30)
[2024-01-11] MEDS: Sodium Chloride 0.9% 1,000 ML IV SCH (14:39)
[2024-01-11] MEDS: Simethicone 80 MG Tab.Chew PO PRN (14:56)
[2024-01-11] MEDS ORDERED: HYDROmorphone 0.5 MG/0.5 ML Syringe IVPUSH PRN (16:59)
[2024-01-11] MEDS: Acetaminophen 325 MG Tab PO PRN (17:06)
[2024-01-11] MEDS ORDERED: chlordiazePOXIDE 25 MG Cap PO PRN (17:49)
[2024-01-11] MEDS ORDERED: LORazepam 2 MG/ML SDV IV PRN (17:49)
[2024-01-11] MEDS: LORazepam 2 MG/ML SDV IV PRN (18:09)
[2024-01-12 06:43] LABS: BASOPHILS PERCENT AUTO 0.2 % (0.0-1.0); EOSINOPHILS PERCENT AUTO 0.2 % (0.0-6.0); HEMATOCRIT 26.2 % (37.0-47.0); HEMOGLOBIN 9.4 gm/dl (12.0-16.0); IMMATURE GRAN ABSOLUTE AUTO 0.06 K/mm3 (0.00-0.05); IMMATURE GRAN PERCENT AUTO 0.7 % (0.0-0.4); MEAN CORPUSCULAR HEMOGLOBIN 31.9 pg (28.0-32.0); MEAN CORPUSCULAR HGB CONC 35.9 g/dl (32.0-36.0); MEAN CORPUSCULAR VOLUME 88.8 fl (83.0-99.0); MEAN PLATELET VOLUME 11.4 fl (9.4-12.3); MONOCYTES ABSOLUTE AUTO 0.8 K/mm3 (0.0-0.8); MONOCYTES PERCENT AUTO 9.6 % (0.0-8.0); NEUTROPHILS ABSOLUTE AUTO 6.8 K/mm3 (1.8-7.7); NEUTROPHILS PERCENT AUTO 78.3 % (41.0-71.0); PLATELET COUNT,PLT 105 K/mm3 (150-400); RED BLOOD CELL COUNT 2.95 M/mm3 (4.10-5.30); WHITE BLOOD CELL COUNT,WBC 8.71 K/mm3 (3.9-11.3)
[2024-01-12 07:08] LABS: A/G RATIO 0.4 (1-2); ALBUMIN 1.5 g/dl (3.4-5.0); ANION GAP 21.8 (5-15); BILIRUBIN TOTAL 0.3 mg/dL (0.2-1.0); BUN/CREATININE RATIO 14.6 (14-18); C-REACTIVE PROTEIN 10.78 mg/dL (<0.30); CALCIUM 6.6 mg/dL (8.5-10.1); CREATININE 3.7 mg/dL (0.55-1.02); EST CRCL DRUG DOSING (CG) 19.28 mL/min; POTASSIUM,K 3.8 mEq/L (3.5-5.1); PROTEIN TOTAL,TP 5.3 g/dl (6.4-8.2)
[2024-01-12] MEDS: Folic Acid 1 MG Tab PO SCH (09:10)
[2024-01-12] MEDS: Multivitamin Tab PO SCH (09:10)
[2024-01-12] MEDS: Thiamine 100 MG Tab PO SCH (09:10)
[2024-01-12] MEDS: cefTRIAXone 2 GM in Sodium Chloride 0.9% 100 ML IV SCH (15:08)
[2024-01-12] MEDS: Famotidine 20 MG Tab PO SCH (21:11)
[2024-01-13 04:50] LABS: BASOPHILS PERCENT AUTO 0.3 % (0.0-1.0); EOSINOPHILS PERCENT AUTO 0.4 % (0.0-6.0); HEMATOCRIT 27.9 % (37.0-47.0); IMMATURE GRAN ABSOLUTE AUTO 0.07 K/mm3 (0.00-0.05); IMMATURE GRAN PERCENT AUTO 0.9 % (0.0-0.4); LYMPHOCYTES ABSOLUTE AUTO 1.3 K/mm3 (1.0-4.8); LYMPHOCYTES PERCENT AUTO 16.1 % (24.0-44.0); MEAN CORPUSCULAR HEMOGLOBIN 31.4 pg (28.0-32.0); MEAN CORPUSCULAR HGB CONC 35.8 g/dl (32.0-36.0); MEAN CORPUSCULAR VOLUME 87.7 fl (83.0-99.0); MEAN PLATELET VOLUME 11.3 fl (9.4-12.3); MONOCYTES PERCENT AUTO 12.2 % (0.0-8.0); NEUTROPHILS ABSOLUTE AUTO 5.6 K/mm3 (1.8-7.7); NEUTROPHILS PERCENT AUTO 70.1 % (41.0-71.0); PLATELET COUNT,PLT 203 K/mm3 (150-400); RED BLOOD CELL COUNT 3.18 M/mm3 (4.10-5.30); WHITE BLOOD CELL COUNT,WBC 7.93 K/mm3 (3.9-11.3)
[2024-01-13 05:20] LABS: A/G RATIO 0.4 (1-2); ALBUMIN 1.5 g/dl (3.4-5.0); BILIRUBIN TOTAL 0.2 mg/dL (0.2-1.0); BUN/CREATININE RATIO 14.7 (14-18); C-REACTIVE PROTEIN 7.9 mg/dL (<0.30); CALCIUM 6.8 mg/dL (8.5-10.1); EST CRCL DRUG DOSING (CG) 23.78 mL/min; PROTEIN TOTAL,TP 5.6 g/dl (6.4-8.2)
[2024-01-13] MEDS: Potassium Chloride 20 MEQ Tab.ER PO ONE (08:00)
[2024-01-13] MEDS: Enoxaparin 30 MG/0.3 ML Syringe SUBCUT SCH (08:01)
[2024-01-13 08:25] LABS: MAGNESIUM 1.7 mg/dL (1.8-2.4); PHOSPHORUS 2.4 mg/dL (2.6-4.7)
[2024-01-13] MEDS: Benzocaine/Cetylpyridinium/Menthol Lozenge MUCMEM PRN (20:24)
[2024-01-14 09:23] LABS: A/G RATIO 0.4 (1-2); ALBUMIN 1.7 g/dl (3.4-5.0); ANION GAP 15.5 (5-15); BILIRUBIN TOTAL 0.3 mg/dL (0.2-1.0); CALCIUM 7.2 mg/dL (8.5-10.1); CREATININE 1.8 mg/dL (0.55-1.02); EST CRCL DRUG DOSING (CG) 39.63 mL/min; POTASSIUM,K 3.5 mEq/L (3.5-5.1); PROTEIN TOTAL,TP 5.6 g/dl (6.4-8.2)
== END 2024-01-14 10:31 | disposition home or self-care (01) | DRG 871 ==
LOC: JD.ED 07:13 → JD.MS 10:19 → OBSVTOIN 11:07
PROVIDERS: ADMIT Student in an Organized Health Care Education/Training Program; ATTEND Family Medicine
DX: A41.51 Sepsis due to Escherichia coli [E. coli] (principal); K85.20 Alcohol induced acute pancreatitis without necrosis or infection; N17.9 Acute kidney failure, unspecified; E87.20 Acidosis, unspecified; E87.1 Hypo-osmolality and hyponatremia; F10.232 Alcohol dependence with withdrawal with perceptual disturbance; N13.6 Pyonephrosis; R65.20 Severe sepsis without septic shock; K21.9 Gastro-esophageal reflux disease without esophagitis; F41.9 Anxiety disorder, unspecified; F32.A Depression, unspecified; E86.0 Dehydration; E87.8 Other disorders of electrolyte and fluid balance, not elsewhere classified; E87.6 Hypokalemia; E88.09 Other disorders of plasma-protein metabolism, not elsewhere classified; R73.9 Hyperglycemia, unspecified; E78.1 Pure hyperglyceridemia; K83.8 Other specified diseases of biliary tract; E83.39 Other disorders of phosphorus metabolism; D64.9 Anemia, unspecified; D69.6 Thrombocytopenia, unspecified; K76.0 Fatty (change of) liver, not elsewhere classified; R74.01 Elevation of levels of liver transaminase levels; K82.8 Other specified diseases of gallbladder; Z88.8 Allergy status to other drugs, medicaments and biological substances; Z79.899 Other long term (current) drug therapy; Z98.890 Other specified postprocedural states
CPT/HCPCS: 0241U; 36415; 71045; 71045-26; 74181; 74181-26; 76700; 76700-26; 80053; 81001; 82947; 83036; 83605; 83690; 83735; 84100; 84478; 84703; 85025; 85610; 86140; 87040; 87077; 87086; 87088; 87154; 87186; 94761; 96361; 96374; 96375; 96376; 99223; 99232; 99233; 99239; 99285; 99285-25; A9270-GY; J0696; J1171; J1644; J1650; J1885; J2060; J2270; J2405; J2543; J3475; J3490; J7030; J7040; J7120